=== PATIENT | male | born 1995 | race Caucasian/White ===

== ENCOUNTER 2021-07-07 13:21 | Emergency (ER) | payer MEDICAID, SELFPAY ==
--- NOTE | ~2021-07-07 | XR_ITS ---
EXAMINATION: XR CHEST CLINICAL INFORMATION: Dyspnea. COMPARISON: None TECHNIQUE: Frontal view of the chest was obtained. FINDINGS: The lungs are clear. The cardiomediastinal silhouette is normal in size. There is no pleural effusion or pneumothorax. No acute osseous abnormality. XR/XR chest 1V IMPRESSION: No acute cardiopulmonary findings.
[2021-07-07 13:47] VITALS: BP 114/68; PULSE 94; RESP 18; TEMP 36.9; O2SAT 97; BMI 19.8
--- NOTE | 2021-07-07 13:50 | ECG_ITS ---
Test Reason : RIB PAIN Blood Pressure : / mmHG Vent. Rate : 075 BPM Atrial Rate : 075 BPM P-R Int : 110 ms QRS Dur : 088 ms QT Int : 336 ms P-R-T Axes : -10 088 056 degrees QTc Int : 375 ms Sinus rhythm with short GA Early repolarization Otherwise normal ECG No previous ECGs available Referred By: Generic ED Physician Electronically Signed By:LANIE ENRIQUEZ MD
[2021-07-07 14:24] LABS: COVID-19 Test Negative (Negative)
[2021-07-07 14:34] LABS: Basophils Percent Auto 0.6 % (0-2); Eosinophils Absolute Auto 0.1 X10*3/uL (0.0-0.4); Eosinophils Percent Auto 0.9 % (0-4); Imm Gran Abs Auto 0.03 X10*3/uL (0.00-0.03); Imm Gran Pct Auto 0.5 % (0.0-0.4); Lymphocytes Absolute Auto 1.8 X10*3/uL (1.2-4.9); Lymphocytes Percent Auto 27.3 % (20-40); MANUAL DIFF FLAG NO; Mean Corpuscular Hemoglobin 30.5 pg (27.0-33.0); Mean Corpuscular Volume 89.7 fL (80-98); Mean Platelet Volume 8.9 fL (9.4-12.4); Monocytes Absolute Auto 0.5 X10*3/uL (0.1-1.2); Monocytes Percent Auto 8.3 % (2-11); Neutrophils Absolute Auto 4.1 X10*3/uL (2.0-8.3); Neutrophils Percent Auto 62.4 % (45-73); Platelet Count 231 X10*3/uL (160-400); Red Blood Count 5.24 X10*6/uL (4.60-5.80); Red Cell Distribution Width 13.6 % (11.0-16.0); White Blood Count 6.5 X10*3/uL (4.8-10.8)
[2021-07-07 14:47] LABS: Anion Gap 11 (12-20); Blood Urea Nitrogen 7 mg/dL (9-16); Calcium 10.4 mg/dL (8.4-10.2); Carbon Dioxide 33 mmol/L (22-29); Chloride 101 mmol/L (96-108); Creatinine Clr Calc Pharmacy 113.2; Estimated Glomerular Filt Rate > 60; Glucose Random 91 mg/dL (60-115); Potassium 4.9 mmol/L (3.3-5.1); Sodium 140 mmol/L (135-145)
--- NOTE | 2021-07-07 16:36 | ED.SOB ---
HPI - SOB/Dyspnea General Chief Complaint: Dyspnea Stated Complaint: rib pain Time Seen by Provider: 07/07/21 16:34 Source: patient and business development Mode of arrival: ambulatory Limitations: no limitations History of Present Illness MD elicited complaint: shortness of breath, cough, pain with inspiration and chest pain Pertinent past history: other (asthma and smoker, dx with pulm nodules 1 year ago at [facility] [place]) Onset (ago): day(s) (4) Context: smoke/fume exposure Timing: intermittent Severity: moderate Exacerbating factors: movement and coughing Relieving factors: nothing Known history of: asthma Associated symptoms: chest pain, cough and wheezing Treatment prior to arrival: none Related Data Previous Rx's Medication Instructions Recorded albuterol sulfate 90 mcg/actuation 2 puff INHALATION QID PRN #6.7 g 07/07/21 aerosol inhaler prednisone 20 mg tablet 40 mg PO DAILY 4 Days #8 tab 07/07/21 Allergies Allergy/AdvReac Type Severity Reaction Status Date / Time Unable to Assess Allergy Verified 07/07/21 16:43 Review of Systems Review of Systems: Constitutional : No Fever, No Chills ENT/Mouth : No Hoarseness, No sore throat, No Rhinorrhea Eyes: No Redness, No Discharge, No Vision Changes Cardiovascular : pos Chest Pain, positive SOB, no Dyspnea on Exertion, No Edema Respiratory : positive Cough, No Sputum, positive Wheezing, Gastrointestinal : No Nausea, No Vomiting, No Diarrhea, No abdominal Pain Genitourinary : No Dysuria, No Hematuria Musculoskeletal : No joint pain, No Myalgias Skin : No rash Neuro : No Weakness, No Numbness, No Headache Psych : No anxiety, depression Heme/Lymph: No Bruising, No Bleeding Endocrine : No Polyuria, No Polydipsia All other systems reviewed and are negative [facility] Past Medical History Attestation statement: The following information was validated with the patient. Medical History (Updated 07/07/21 @ 17:02 by Mitzi Ozuna DO) Asthma Hypoglycemia Lung nodules Social History Social History Patient Tobacco Use Status: Current everyday Tobacco user Physical Exam Vital Signs: Vital Signs: Last Vital Signs Temp 98.4 F 07/07/21 13:47 Pulse 94 07/07/21 13:47 Resp 18 07/07/21 13:47 BP 114/68 07/07/21 13:47 Pulse Ox 97 07/07/21 13:47 Body Mass Index 19.8 Appearance: Alert. Oriented X3. No acute distress. Eyes: Pupils equal, round and reactive to light. ENT: Pharynx normal. Neck: Normal inspection. Neck supple. CVS: Normal heart rate and rhythm. Pulses normal. Respiratory: No respiratory distress. Breath sounds decreased in nature - no wheezing noted Abdomen: Soft and nontender. Skin: Skin warm and dry. Normal skin color. Normal skin turgor. Extremities: No lower extremity edema. No calf ttp Neuro: Oriented X 3. No motor deficit. No sensory deficit. MDM - SOB/Dyspnea MDM Narrative Medical decision making narrative: 26 yo male with asthma and smoking comes in with chest pain / asthma like symptoms x 3 days. Negative EKG, CXR - not toxic, COVID negative, will give INH and PO prednisone. He has no sig ACS risk factors, he is in no distress on his phone doubt dissection, he is PERC negative - if trop negative anticipate DC home Lab Data Result diagrams: 07/07/21 14:28 07/07/21 14:29 Labs: Lab Results 07/07/21 07/07/21 07/07/21 Range/Units 13:46 14:28 14:29 WBC 6.5 (4.8-10.8) X10*3/uL RBC 5.24 (4.60-5.80) X10*6/uL Hgb 16.0 (14.0-18.0) g/dl Hct 47.0 (42-52) % MCV 89.7 (80-98) fL MCH 30.5 (27.0-33.0) pg MCHC 34.0 (31.0-36.0) g/dl RDW 13.6 (11.0-16.0) % Plt Count 231 (160-400) X10*3/uL MPV 8.9 L (9.4-12.4) fL Immature Gran % (Auto) 0.5 H (0.0-0.4) % Neut % (Auto) 62.4 (45-73) % Lymph % (Auto) 27.3 (20-40) % Bailey % (Auto) 8.3 (2-11) % Eos % (Auto) 0.9 (0-4) % Baso % (Auto) 0.6 (0-2) % Lymph # (Auto) 1.8 (1.2-4.9) X10*3/uL Bailey # (Auto) 0.5 (0.1-1.2) X10*3/uL Eos # (Auto) 0.1 (0.0-0.4) X10*3/uL Baso # (Auto) 0.0 (0.0-0.2) X10*3/uL Abs Immat Gran (auto) 0.03 (0.00-0.03) X10*3/uL Absolute Neuts (auto) 4.1 (2.0-8.3) X10*3/uL Absolute Nucleated RBC 0.000 (0.0-0.012) X10*3/uL Nucleated RBC % (auto) 0.0 (0.0-0.2) /100WBC Sodium 140 (135-145) mmol/L Potassium 4.9 (3.3-5.1) mmol/L Chloride 101 (96-108) mmol/L Carbon Dioxide 33 H (22-29) mmol/L Anion Gap 11 L (12-20) BUN 7 L (9-16) mg/dL Creatinine 0.97 (0.5-1.4) mg/dL Estim Creat Clear Calc 113.2 Estimated GFR > 60 Random Glucose 91 (60-115) mg/dL Calcium 10.4 H (8.4-10.2) mg/dL COVID-19 (DANIEL) Negative (Negative) COVID-19 Clin Com See Note ECG Data Attestation: I personally reviewed and interpreted this ECG as follows: ECG interpretation date: 07/07/21 ECG interpretation time: 16:41 Interpretation: Rate: 75 Rhythm: NSR [place]: normal Normal P waves. Normal ANGELO. Normal QRS complex. ST T wave : normal no BERNIE qTC: normal prior studies: no acute ischemia The study has been interpreted contemporaneously by me. . Discharge Plan Discharge Clinical Impression: Asthma with exacerbation Qualifiers: Asthma severity: mild Asthma persistence: persistent Qualified Code(s): J45.31 - Mild persistent asthma with (acute) exacerbation Patient Disposition: Home, Self-Care Instructions: Asthma (ED), How to Stop Smoking (ED) Additional Instructions: return to ED for any worsening symptoms or concerns Prescriptions: New prednisone 20 mg tablet 40 mg PO DAILY 4 Days Qty: 8 RF: 0 albuterol sulfate 90 mcg/actuation HFA aerosol inhaler 2 puff inhalation QID PRN (Reason: shortness of breath or wheezing) Qty: 6.7 RF: 0 Stand Alone Forms: Work/School Release Print Language: Estonian
[2021-07-07] MEDS: Albuterol Sulfate 90 MCG 8 GM INHALER 2 PUFF INHALE (17:05)
[2021-07-07 17:07] VITALS: PULSE 66
[2021-07-07 17:07] LABS: Troponin-I High Sensitivity < 3.5 ng/L (<3.5-35.0)
[2021-07-07] MEDS: predniSONE 20 MG TABLET 40 MG PO (17:44)
== END 2021-07-07 17:45 | disposition home or self-care (01) ==
LOC: HO.ED 17:16
PROVIDERS: Emergency Provider Emergency Medicine
DX: J45.31 Mild persistent asthma with (acute) exacerbation (principal); R06.02 Shortness of breath; R07.81 Pleurodynia; Z20.822 Contact with and (suspected) exposure to COVID-19; Z79.899 Other long term (current) drug therapy
CPT/HCPCS: 36415; 71045; 80048; 84484; 85025; 87635; 93005; 94640; 99283; 99284

== ENCOUNTER 2021-07-17 15:39 | Emergency (ER) | payer MEDICAID, SELFPAY ==
--- NOTE | ~2021-07-17 | XR_ITS ---
EXAMINATION: XR CHEST CLINICAL INFORMATION: Shortness of breath. COMPARISON: Chest radiograph dated from 07/07/2021. TECHNIQUE: AP view of the chest was obtained. FINDINGS: No significant abnormality is noted involving the heart, lungs, mediastinum, bony thorax or soft tissues. XR/XR chest 1V IMPRESSION: No acute cardiopulmonary findings.
[2021-07-17 16:25] VITALS: BP 110/56; PULSE 87; RESP 16; TEMP 36.9; O2SAT 97; BMI 23.8
--- NOTE | 2021-07-17 18:27 | ED.ASTHMA ---
HPI - Asthma General Chief Complaint: Asthma Stated Complaint: chest tightness Time Seen by Provider: 07/17/21 18:27 Source: patient Mode of arrival: ambulatory Limitations: no limitations History of Present Illness HPI Narrative: CC of asthma not vaccinated against COVID was seen here on 07/07 for asthma attack COVID was negative that time chest x-ray was negative comes here for similar increased shortness of breath for last 2 days using inhaler and nebulizer treatment without much relief no fever no chills Related Data Previous Rx's Medication Instructions Recorded albuterol sulfate 90 mcg/actuation 2 puff INHALATION QID PRN #6.7 g 07/07/21 aerosol inhaler prednisone 20 mg tablet 40 mg PO DAILY 4 Days #8 tab 07/07/21 prednisone 20 mg tablet 40 mg PO DAILY #10 tab 07/17/21 Allergies Allergy/AdvReac Type Severity Reaction Status Date / Time Unable to Assess Allergy Verified 07/07/21 16:43 Review of Systems Review of Systems: Yes all other systems are reviewed and are negative PMFSH Past Medical History Medical History Asthma Hypoglycemia Lung nodules Social History Social History Patient Tobacco Use Status: Current everyday Tobacco user Advance Directives: No Advance Directives Information Provided: No Physical Exam Vital Signs: Vital Signs: Last Vital Signs Temp 98.8 F 07/17/21 18:51 Pulse 56 07/17/21 18:51 Resp 18 07/17/21 18:51 BP 107/63 07/17/21 18:51 Pulse Ox 100 07/17/21 18:51 Body Mass Index 23.8 Appearance: Alert. Oriented X3. No acute distress. ENT: Pharynx normal. Oral Mucosa moist Neck: Normal inspection. Neck supple. CVS: Normal heart rate and rhythm. Pulses normal. Respiratory: No respiratory distress. Equal air entry bilateral, bilateral wheezing with frequent cough Abdomen: Soft and nontender. Bowel sounds are present, no mass palpable, no CVA tenderness Skin: Skin warm and dry. Normal skin color. Normal skin turgor. Extremities: No lower extremity edema. No calf tenderness Neuro: Oriented X 3. MDM - Asthma MDM Narrative Medical decision making narrative: Patient felt better after nebulizing treatment lungs are clear discharge patient home on prednisone advised to continue albuterol inhaler patient is saturating 100% room air Discharge Plan Discharge Clinical Impression: Asthma with acute exacerbation Qualifiers: Asthma severity: moderate Asthma persistence: persistent Qualified Code(s): J45.41 - Moderate persistent asthma with (acute) exacerbation Patient Disposition: Home, Self-Care Instructions: Asthma (ED) Additional Instructions: Use inhaler and nebulizing treatment as needed every 4 hours Prednisone as advised Report to the ER if worsening of shortness of breath Prescriptions: New prednisone 20 mg tablet 40 mg PO DAILY Qty: 10 RF: 0 No Action prednisone 20 mg tablet 40 mg PO DAILY 4 Days Qty: 8 RF: 0 albuterol sulfate 90 mcg/actuation HFA aerosol inhaler 2 puff inhalation QID PRN (Reason: shortness of breath or wheezing) Qty: 6.7 RF: 0 Interventions: ED Discharge Assessment Last Done: 07/17/21 20:39 Discharge Date/Time: 07/17/21 20:39
[2021-07-17] MEDS: predniSONE 20 MG TABLET 40 MG PO (18:43)
[2021-07-17] MEDS: guaiFEN/Codeine SF 200/20/10ML 10 ML LIQUID PO (18:43)
[2021-07-17] MEDS: Albuterol Sulfate (0.083%) 2.5 MG/3 ML VIAL.NEB 5 MG INHALE (18:46)
[2021-07-17] MEDS: Albuterol/Iprat 2.5/0.5MG 3 ML AMPUL.NEB INHALE (18:46)
[2021-07-17 18:49] VITALS: PULSE 59; O2SAT 100
[2021-07-17 18:51] VITALS: BP 107/63; PULSE 56; RESP 18; TEMP 37.1; O2SAT 100
== END 2021-07-17 20:39 | disposition home or self-care (01) ==
PROVIDERS: Emergency Provider Internal Medicine
DX: J45.41 Moderate persistent asthma with (acute) exacerbation (principal)
CPT/HCPCS: 71045; 94640; 94644; 99283; 99284